=== PATIENT | female | born 1930 | race Two or more races ===

== ENCOUNTER 2020-07-12 20:49 | Inpatient (IN) | payer MEDICARE, OTHER ==
[~2020-07-12] VITALS: Ht 154.9 cm; Wt 44.9 kg
--- NOTE | 2020-07-12 22:21 | NUR ---
PT BIBPA SENT BY DR. NAILS FROM [facility] FOR FLU LIKE SYMPTOMS. PT PLACED ON MONITOR AND PULSE OX. VSS. AWAITING FOR MD TO PALCE ORDERS.
--- NOTE | 2020-07-12 22:40 | NUR ---
VASQUEZID SWABBED, SENT TO LAB.
--- NOTE | 2020-07-12 23:59 | NUR ---
PT REMAINS IN BED, VSS.
--- NOTE | 2020-07-13 00:35 | NUR ---
dr. rodgers speaking to dr. mata regarding plan of care/ results.
--- NOTE | 2020-07-13 00:55 | NUR ---
called [facility]; [phone]. spoke to charmaine, informed nurse pt okay to admit at [facility] facility for covid r/o pt. fax #[phone]
--- NOTE | 2020-07-13 01:17 | NUR ---
verified with SERGEI Estrada she received fax. aware rapid covid test is negative and cxr is consistent with covid. however, SERGEI Estrada states they need a definet covid results. Dr. esperanza kincaid
--- NOTE | 2020-07-13 03:22 | NUR ---
called rn sup for m/s bed
--- NOTE | 2020-07-13 03:36 | NUR ---
LINE ESTABLISHED 20G.
--- NOTE | 2020-07-13 05:36 | NUR ---
CALLED RN SUP, BED WILL BE ASSIGEND AFTER 729.
--- NOTE | 2020-07-13 06:55 | NUR ---
called rn sup, no assigned beds at this time.
[2020-07-13] MEDS ORDERED: ACET-868 PO ×2 (07:37)
[2020-07-13] MEDS ORDERED: RISP0.2515 PO (07:37)
[2020-07-13] MEDS ORDERED: MEGE400O6 PO (07:37)
[2020-07-13] MEDS ORDERED: ZINC50TA65 PO (07:37)
[2020-07-13] MEDS ORDERED: BUSP5TAB3 PO (07:37)
[2020-07-13] MEDS ORDERED: LEVO50TA8 PO (07:37)
[2020-07-13] MEDS ORDERED: DIVA-76 PO (07:37)
[2020-07-13] MEDS ORDERED: CHOL100040 PO (07:37)
[2020-07-13] MEDS ORDERED: ASCO-352 PO (07:37)
[2020-07-13] MEDS ORDERED: AMLO-212 PO (07:37)
--- NOTE | 2020-07-13 08:55 | NUR ---
report given to archana cedeno at [facility] for caridad. pt will go to 113-2.
--- NOTE | 2020-07-13 09:30 | NUR ---
pt transferred top room 113-2
--- NOTE | 2020-07-13 10:18 | NUR ---
ASSEMBLER DRY CELL AND BATTERY RECEIVING NOTES RECEIVED ADMISSION FROM ER. PATIENT IN MEDICALLY STABLE CONDITION, ON ROOM AIR. VS WNL BP: 139/68 HR 82 TEMP 98.9 RESP 20 O2 98% ON ROOM AIR. WILL CONTINUE TO MONITOR PATIENT.
--- NOTE | 2020-07-13 11:20 | NUR ---
ELECTROENCEPHALOGRAPHIC TECHNICIAN NOTES PATIENT REFUSES SKIN ASSESSMENT AT THIS TIME
[2020-07-13] MEDS: ASCORBIC ACID 500 MG TABLET PO SCH (17:38)
[2020-07-13] MEDS: busPIRone 5 MG TABLET PO SCH (17:38)
--- NOTE | 2020-07-13 18:50 | NUR ---
FIELD TECH CLOSING NOTES PATIENT RESTING IN BED, AWAKE, A/O X1, CONFUSED AND FORGETFUL. TRIES TO GET OUT OF BED AT TIMES; BED ALARM ON AT ALL TIMES. PATIENT ON ROOM AIR AT THIS TIME; BREATHING EVEN AND UNLABORED; NO SOB NOTED. PATIENT KEEPS REMOVING TELE BOX AND LEADS; PATIENT DOES NOT WANT TO KEEP IT ON. NO COMPLAINS OF PAIN. L HAND IV ACCESS G # 20 SL. ALL NEEDS ATTENDED. SAFETY PRECAUTIONS IN PLACE; BED IN LOW POSITION AND LOCKED, RAILS UP X2, CALL LIGHT WITHIN REACH. WILL ENDORSE TO VP PRODUCT NURSE.
[2020-07-13 20:00] VITALS: BP 138/76
--- NOTE | 2020-07-13 20:00 | NUR ---
RN NOTES PATIENT AWAKE, A/O X1, AND CONFUSED. BREATHING EVEN AND UNLABORED. NO SOB OR ANY RESPIRATORY DISTRESS. ON ROOM AIR, O2 SAT 95%. TELE MONITOR IN PLACE AT THIS TIME, SR 60'S. DENIES ANY PAIN OR DISCOMFORT. WITH LEFT HAND # 20 SL, PATENT AND INTACT. BED LOCKED AND IN LOWEST POSITION. ALL SAFETY MEASURES IMPLEMENTED. SIDE RAILS UP X2. CALL LIGHT WITHIN REACH. WILL CONTINUE TO MONITOR.
[2020-07-13] MEDS: DIVALPROEX SODIUM 250 MG TABLET.DR PO SCH (20:30)
[2020-07-13] MEDS: risperiDONE 0.25 MG TABLET PO SCH (20:31)
[2020-07-14] VITALS: BP 137/81
[2020-07-14 00:02] LABS: BASOPHILS % (AUTO) 0.2 % (0.0-2.0); EOSINOPHILS % (AUTO) 0.2 % (0.0-6.0); HEMATOCRIT 37 % (33-45); HEMOGLOBIN 12.2 g/dL (11.5-14.8); LYMPHOCYTES # (AUTO) 1.8 /CMM (0.8-4.8); LYMPHOCYTES % (AUTO) 31.1 % (20.0-44.0); MEAN CORPUSCULAR HGB CONC 33 g/dl (31.0-36.0); MEAN CORPUSCULAR VOLUME 88 fL (82-100); MONOCYTES # (AUTO) 0.6 /CMM (0.1-1.30); MONOCYTES % (AUTO) 9.7 % (2.0-12.0); NEUTROPHILS # (AUTO) 3.4 /CMM (1.8-8.9); NEUTROPHILS % (AUTO) 58.8 % (43.0-81.0); PLATELET COUNT (AUTO) 197 /CMM (150-450); RED BLOOD CELL COUNT(AUTO) 4.24 MIL/uL (4.0-5.2); WHITE BLOOD COUNT (AUTO) 5.7 K/uL (4.3-11.0)
[2020-07-14 00:16] LABS: ALANINE AMINOTRANSFERASE 16 U/L (12-78); ALBUMIN 2.9 g/dL (3.4-5.0); ALKALINE PHOSPHATASE 44 U/L (46-116); ASPARTATE AMINOTRANSFERASE 20 U/L (15-37); BILIRUBIN,TOTAL 0.5 mg/dL (0.2-1.0); CALCIUM, SERUM 8.4 mg/dL (8.5-10.1); CARBON DIOXIDE 28 mmol/L (21-32); CHLORIDE 106 mmol/L (98-107); CREATININE 0.6 mg/dL (0.6-1.3); GLUCOSE 87 mg/dL (74-106); POTASSIUM 3.8 mmol/L (3.5-5.1); SODIUM SERUM 141 mmol/L (136-145); TOTAL PROTEIN, SERUM 6.4 g/dL (6.4-8.2); UREA NITROGEN, BLOOD 19 mg/dL (7-18)
[2020-07-14 04:00] VITALS: BP 127/79
[2020-07-14 06:11] LABS: BASOPHILS # (AUTO) 0.1 /CMM (0.0-0.2); BASOPHILS % (AUTO) 1.2 % (0.0-2.0); EOSINOPHILS % (AUTO) 0.1 % (0.0-6.0); HEMATOCRIT 39 % (33-45); HEMOGLOBIN 12.8 g/dL (11.5-14.8); LYMPHOCYTES # (AUTO) 1.5 /CMM (0.8-4.8); MEAN CORPUSCULAR HGB CONC 33 g/dl (31.0-36.0); MEAN CORPUSCULAR VOLUME 89 fL (82-100); MONOCYTES # (AUTO) 0.5 /CMM (0.1-1.30); MONOCYTES % (AUTO) 9.5 % (2.0-12.0); NEUTROPHILS # (AUTO) 3.1 /CMM (1.8-8.9); NEUTROPHILS % (AUTO) 60.2 % (43.0-81.0); PLATELET COUNT (AUTO) 208 /CMM (150-450); RED BLOOD CELL COUNT(AUTO) 4.43 MIL/uL (4.0-5.2); WHITE BLOOD COUNT (AUTO) 5.2 K/uL (4.3-11.0)
[2020-07-14 06:13] LABS: CALCIUM, SERUM 8.8 mg/dL (8.5-10.1); CARBON DIOXIDE 28 mmol/L (21-32); CHLORIDE 107 mmol/L (98-107); CREATININE 0.7 mg/dL (0.6-1.3); GLUCOSE 89 mg/dL (74-106); MAGNESIUM 2.1 mg/dL (1.8-2.4); POTASSIUM 4.8 mmol/L (3.5-5.1); SODIUM SERUM 144 mmol/L (136-145); UREA NITROGEN, BLOOD 17 mg/dL (7-18)
--- NOTE | 2020-07-14 06:24 | NUR ---
OBTAINED NEW ORDERS FROM NOTED AND CARRIED OUT.
[2020-07-14] MEDS ORDERED: CEFTRIAXONE 1 G in IV D5W 50 ML IV SCH (06:30)
[2020-07-14] MEDS ORDERED: ONDANSETRON HCL/PF 4 MG/2 ML VIAL IV PRN (06:30)
[2020-07-14] MEDS ORDERED: IV D5/ 0.9% NACL 1,000 ML IV ONE ×2 (06:30→08:00)
--- NOTE | 2020-07-14 07:08 | NUR ---
RN NOTES PATIENT AWAKE, A/O X1, AND CONFUSED. BREATHING EVEN AND UNLABORED. NO SOB OR ANY RESPIRATORY DISTRESS. ON ROOM AIR, O2 SAT 95%. TELE MONITOR IN PLACE AT THIS TIME, SR 68. DENIES ANY PAIN OR DISCOMFORT. WITH LEFT HAND # 20 SL, PATENT AND INTACT. BED LOCKED AND IN LOWEST POSITION. ALL SAFETY MEASURES IMPLEMENTED. SIDE RAILS UP X2. CALL LIGHT WITHIN REACH. WILL ENDORSE TO ONCOMING SHIFT.
[2020-07-14 08:13] VITALS: BP 144/75
--- NOTE | 2020-07-14 08:30 | NUR ---
POWDER LOADER NOTES RECEIVED PATIENT FOR CONTINUITY OF CARE. WILL CONTINUE TO MONITOR.
[2020-07-14] MEDS: MEGESTROL ACETATE SUSP 400 MG/10 ML UDC PO SCH (09:00)
[2020-07-14] MEDS ORDERED: Medication Not On Formulary EA (Zinc Amino Acid Chelate (Zinc) 50 MG) PO SCH (09:00)
[2020-07-14] MEDS: CHOLECALCIFEROL 1,000 UNIT TABLET (VIT D3) PO SCH (09:30)
[2020-07-14] MEDS: AMLODIPINE BESYLATE 5 MG TABLET PO SCH (09:31)
[2020-07-14] MEDS: ASCORBIC ACID 500 MG TABLET PO SCH ×2 (09:31→17:54)
[2020-07-14] MEDS: risperiDONE 0.25 MG TABLET PO SCH ×2 (09:31→21:11)
[2020-07-14] MEDS: DIVALPROEX SODIUM 250 MG TABLET.DR PO SCH ×2 (09:31→21:11)
[2020-07-14] MEDS: ACETAMINOPHEN 325 MG TABLET PO SCH (09:31)
[2020-07-14] MEDS: busPIRone 5 MG TABLET PO SCH ×2 (09:31→17:53)
[2020-07-14] MEDS: FAMOTIDINE/PF INJ 20 MG/2 ML VIAL IV SCH ×2 (09:32→21:11)
[2020-07-14] MEDS: ENOXAPARIN SODIUM 30 MG/0.3 ML DISP.SYRIN SQ SCH (09:33)
[2020-07-14] MEDS: LEVOTHYROXINE SODIUM 50 MCG TABLET PO SCH (09:34)
--- NOTE | 2020-07-14 10:12 | NUR ---
GLASS TECHNICIAN NOTES PATIENT TRANSFERRED TO SERGEI GRULLON FOR CONTINUITY OF CARE.
[2020-07-14 12:00] VITALS: BP 110/54
[2020-07-14] MEDS: CEFTRIAXONE 1 G in IV D5W 50 ML IV SCH (12:36)
[2020-07-14] MEDS: AZITHROMYCIN 500 MG in IV D5W 250 ML IV SCH (14:28)
[2020-07-14 16:00] VITALS: BP 103/54
--- NOTE | 2020-07-14 19:55 | NUR ---
PT REMAINS AOX1. PATIENT ON RA, O2 SATURATION 96% NO RESPIRATORY DISTRESS OR SOB. PT ON MONITOR SHOWING SINUS RHYTHM/SINUS PEDRITO. PT VOID 2X INCONTINENT ON DIAPER. PT REMAINS REGULAR DIET BUT WITH POOR APPETITE, STATION DETECTIVE FEEDER REPORTS APPROXIMATELY 10% OF ORAL INTAKE FOR FOOD. OFTEN REFUSES WATER AND FOOD, BUT TAKES MEDICATION. PT LEFT FOREARM #20 RUNNING D5NS AT 75 ML/HR, NO SIGNS OF INFECTION OR INFILTRATION. BED IN LOCKED LOWEST POSITION, CALL LIGHT WITHIN REACH, ALL SAFETY MEASURES IN PLACE. REPORT GIVEN TO PATITO FOR GIORGIO
[2020-07-14 20:00] VITALS: BP 127/71
[2020-07-15 04:00] VITALS: BP 166/84
--- NOTE | 2020-07-15 05:42 | NUR ---
ENDING NOTES: PATIENT IS CONFUSED AND NONCOOPERATIVE SCREAMS WHEN REPOSITIONED OR CLEANED OR WHEN HER IV NEEDED TO BE LOOKED AT THE SITE. HER SKIN IS INTACT AND EASY TO TURN AND REPOSITION HER LEGS ARE STIFF WHEN ATTEMPTING TO REPOSITIONS HER CRUSHED HER PO MEDS AND GAVE IT WILL PUDDING AND WAS SUCCESSFUL NO SOB AFEBRILE
[2020-07-15 06:00] LABS: BASOPHILS % (AUTO) 0.2 % (0.0-2.0); EOSINOPHILS % (AUTO) 0.4 % (0.0-6.0); HEMATOCRIT 39 % (33-45); HEMOGLOBIN 12.7 g/dL (11.5-14.8); LYMPHOCYTES # (AUTO) 1.7 /CMM (0.8-4.8); LYMPHOCYTES % (AUTO) 31.6 % (20.0-44.0); MEAN CORPUSCULAR HGB CONC 33 g/dl (31.0-36.0); MEAN CORPUSCULAR VOLUME 88 fL (82-100); MONOCYTES # (AUTO) 0.5 /CMM (0.1-1.30); NEUTROPHILS # (AUTO) 3.3 /CMM (1.8-8.9); NEUTROPHILS % (AUTO) 58.8 % (43.0-81.0); PLATELET COUNT (AUTO) 221 /CMM (150-450); WHITE BLOOD COUNT (AUTO) 5.5 K/uL (4.3-11.0)
[2020-07-15 06:48] LABS: CALCIUM, SERUM 8.5 mg/dL (8.5-10.1); CREATININE 0.7 mg/dL (0.6-1.3); POTASSIUM 4.2 mmol/L (3.5-5.1)
--- NOTE | 2020-07-15 07:30 | NUR ---
RN TELE1 PATIENT IN BED, NO S/S OF DISTRESS, ON ROOM AIR, O2 SAT > 95%, A/O X1, TELE MONTIOR IN PLACE, SINUS RHYTHM, HR 59, SKIN INTACT, REGULAR DIET, POOR APPETITE, IV LEFT FOREARM 20G, INTACT CLEAN FLUSHES WELL, BED IN LOWEST LOCKED POSITION, CALL LIGHT WITHIN REACH, SAFETY MEASURES IN PLACE, WILL CONTINUE TO MONITOR.
[2020-07-15 08:00] VITALS: BP 165/78
[2020-07-15] MEDS: AZITHROMYCIN 500 MG in IV D5W 250 ML IV SCH (09:00)
[2020-07-15] MEDS: ENOXAPARIN SODIUM 30 MG/0.3 ML DISP.SYRIN SQ SCH (10:10)
[2020-07-15] MEDS: ASCORBIC ACID 500 MG TABLET PO SCH ×2 (10:11→18:17)
[2020-07-15] MEDS: risperiDONE 0.25 MG TABLET PO SCH ×2 (10:11→20:40)
[2020-07-15] MEDS: MEGESTROL ACETATE SUSP 400 MG/10 ML UDC PO SCH (10:11)
[2020-07-15] MEDS: LEVOTHYROXINE SODIUM 50 MCG TABLET PO SCH (10:11)
[2020-07-15] MEDS: DIVALPROEX SODIUM 250 MG TABLET.DR PO SCH ×2 (10:11→20:40)
[2020-07-15] MEDS: CHOLECALCIFEROL 1,000 UNIT TABLET (VIT D3) PO SCH (10:11)
[2020-07-15] MEDS: busPIRone 5 MG TABLET PO SCH ×2 (10:12→18:17)
[2020-07-15] MEDS: FAMOTIDINE (20 MG) 20 MG TABLET PO SCH ×2 (10:12→18:17)
[2020-07-15] MEDS: AMLODIPINE BESYLATE 5 MG TABLET PO SCH (10:12)
[2020-07-15] MEDS: ACETAMINOPHEN 325 MG TABLET PO SCH (10:12)
[2020-07-15] MEDS: CEFTRIAXONE 1 G in IV D5W 50 ML IV SCH (10:31)
[2020-07-15 12:00] VITALS: BP 105/66
--- NOTE | 2020-07-15 12:00 | NUR ---
RN TELE1 PATIENT IS SLEEPING IN BED, NO S/S OF DISTRESS, WILL CONTINUE TO MONITOR.
--- NOTE | 2020-07-15 14:00 | NUR ---
RELAYED POSITIVE RESULT PCR TO JAJA MAI FOR GIORGIO.
--- NOTE | 2020-07-15 14:00 | NUR ---
THRASHER FEEDER PATIENT IN BED, CLEANED LINENS, TOLERATED WELL, SKIN INTACT.
--- NOTE | 2020-07-15 14:12 | NUR ---
PATIENT PCR COVID POSITIVE DR. ALLISON NOTIFIED.
[2020-07-15 16:00] VITALS: BP 137/66
[2020-07-15] MEDS ORDERED: FAMOTIDINE (20 MG) 20 MG TABLET PO SCH ×2 (17:00)
--- NOTE | 2020-07-15 19:30 | NUR ---
RN TELE1 PATIENT IN BED, NO S/S OF DISTRESS, ON ROOM AIR, O2 SAT > 95%, A/O X1, TELE MONITOR IN PLACE, SINUS RHYTHM, SKIN INTACT, REGULAR DIET, POOR APPETITE, IV LEFT FOREARM 20G, INTACT CLEAN FLUSHES WELL, DID NOT URINATE DURING THE SHIFT, NOTIFIED THE FLYING SHEAR OPERATOR NURSE TO MONITOR, BED IN LOWEST LOCKED POSITION, CALL LIGHT WITHIN REACH, SAFETY MEASURES IN PLACE, WILL CONTINUE TO MONITOR.
[2020-07-15 20:00] VITALS: BP 116/70
--- NOTE | 2020-07-15 20:00 | NUR ---
RN OPENING NOTES RECEIVED PATIENT IN BED, VERBALLY RESPONSIVE. ALERT ORIENTED X 1. NOT IN ANY ACUTE DISTRESS, DENIES SOB. WITH LFA 20G IV, PATIENT COMPLAINED OF PAIN ON IV SITE, MILD SWELLING NOTED. NO SIGNS OF INFECTION, REMOVED LIVE. INSERTED NEW IV ON RIGHT FOREARM 22G, WITH GOOD RETURN, FLUSHED WITH NS. ALL SAFETY MEASURES IMPLEMENTED. BED LOCKED IN LOWEST POSITION, ALARM ON. CALL LIGHT WITHIN REACH. SIDE RAILS UP.
[2020-07-16 04:00] VITALS: BP 118/73
--- NOTE | 2020-07-16 07:48 | NUR ---
RN NOTES PATIENT REMAINS IN BED. NOT IN ANY ACUTE DISTRESS. DENIES SOB. DENIES ANY PAIN. WITH IV LINE ON RIGHT FA G 22 PATENT AND INTACT, FLUSHED. KEPT CLEAN AND DRY. ATTENDED TO NEEDS. ALL SAFETY MEASURES IMPLEMENTED PER PROTOCOL, BED LOCKED IN LOWEST POSITION. SIDE RAILS UP. CALL LIGHT WITHIN REACH.WILL ENDORSE TO AM SHIFT FOR GIORGIO.
--- NOTE | 2020-07-16 07:50 | NUR ---
RN OPENING NOTE Patient is resting in bed, A/O x1, showing no signs of acute distress or SOB, stable on RA. Patient denies any pain or discomfort at this time. IV line is clean and intact flushing well. Bed is in lowest position, side rails x in upright position, call light is within reach, fall safety and aspiration precautions enforced. Will continue with plan of care.
[2020-07-16 08:00] VITALS: BP 119/55
[2020-07-16] MEDS: FAMOTIDINE (20 MG) 20 MG TABLET PO SCH ×2 (08:24→16:34)
[2020-07-16] MEDS: CHOLECALCIFEROL 1,000 UNIT TABLET (VIT D3) PO SCH (08:24)
[2020-07-16] MEDS: busPIRone 5 MG TABLET PO SCH ×2 (08:24→16:34)
[2020-07-16] MEDS: MEGESTROL ACETATE SUSP 400 MG/10 ML UDC PO SCH (08:24)
[2020-07-16] MEDS: risperiDONE 0.25 MG TABLET PO SCH ×2 (08:25→20:45)
[2020-07-16] MEDS: LEVOTHYROXINE SODIUM 50 MCG TABLET PO SCH (08:25)
[2020-07-16] MEDS: DIVALPROEX SODIUM 250 MG TABLET.DR PO SCH ×2 (08:25→20:45)
[2020-07-16] MEDS: ASCORBIC ACID 500 MG TABLET PO SCH ×2 (08:25→16:34)
[2020-07-16] MEDS: CEFTRIAXONE 1 G in IV D5W 50 ML IV SCH (08:26)
[2020-07-16] MEDS: ENOXAPARIN SODIUM 30 MG/0.3 ML DISP.SYRIN SQ SCH (08:27)
[2020-07-16] MEDS: ACETAMINOPHEN 325 MG TABLET PO SCH (08:27)
[2020-07-16] MEDS: AMLODIPINE BESYLATE 5 MG TABLET PO SCH (08:28)
[2020-07-16] MEDS: AZITHROMYCIN 500 MG in IV D5W 250 ML IV SCH (09:56)
[2020-07-16 12:00] VITALS: BP 82/40
--- NOTE | 2020-07-16 12:20 | NUR ---
RN NOTE Manual BP is 80s/40s HR 140. Notified Dr. Crowley and received telephone order for 1 LITER D5 1/2NS @100MLS/HR. Orders repeated back and will carry out. Addendum: 07/16/20 at 1228 by ELE MCNAIR RN RN NOTE Patient is able to respond to name and touch. Will continue to monitor closely.
[2020-07-16] MEDS: IV D5/0.45 NACL 1,000 ML IV PRN (12:30)
[2020-07-16 13:00] VITALS: BP 99/64
[2020-07-16 16:00] VITALS: BP 107/74
--- NOTE | 2020-07-16 18:53 | NUR ---
RN CLOSING NOTE Patient is resting in bed, A/O x1, showing no signs of acute distress or SOB, stable on RA. IV line is clean and intact flushing well. All patient needs met, all due medications given, patient kept clean and dry throughout shift. Bed is in lowest position, side rails x in upright position, call light is within reach, fall safety and aspiration precautions enforced. Will endorse to shift manager for GIORGIO.
[2020-07-16 20:00] VITALS: BP 126/75
--- NOTE | 2020-07-16 20:00 | NUR ---
RN OPENING NOTE: Patient in bed sleeping comfortably. Patient breathing even and unlabored on room air. No acute respiratory distress or SOB noted. Noted IV access on right forearm, 22 gauge, patent, no redness, or infiltration. Safety measure in place, bed is in the lowest level, bed is locked, alarm is on, side rails x2 are up, and call light is within reach. Will continue to monitor.
[2020-07-17] MEDS: IV D5/0.45 NACL 1,000 ML IV PRN (05:34)
--- NOTE | 2020-07-17 07:00 | NUR ---
RN OPENING NOTES RECEIVED PT IN BED. A/O X 1. ON ROOM AIR SATURATING @98%. NO SOB OR ANY ACUTE DISTRESS. WITH RFA #22 INTACT AND PATENT. D5 1/2 NS RUNNING @100ML/HR. NO PAIN REPORTED AT THIS TIME. SAFETY MEASURES IMPLEMENTED. CALL LIGHT WITHIN REACH. BED LOCKED AND IN LOWEST POSITION WITH SIDE RAILS UP. BED ALARM ON. WILL CONTINUE TO MONITOR
--- NOTE | 2020-07-17 07:54 | NUR ---
RN CLOSING NOTE: Patient in bed resting comfortably. Patient breathing even and unlabored with no SOB or acute respiratory distress. All needs were met. Safety measures maintained. Bed is in the lowest level, bed is locked, alarm is on, side rails x2 are up, and call light is within reach. Endorsed to morning nurse.
[2020-07-17 08:00] VITALS: BP 103/72
[2020-07-17] MEDS: CEFTRIAXONE 1 G in IV D5W 50 ML IV SCH (08:00)
[2020-07-17] MEDS: LEVOTHYROXINE SODIUM 50 MCG TABLET PO SCH (08:50)
[2020-07-17] MEDS: ACETAMINOPHEN 325 MG TABLET PO SCH (08:51)
[2020-07-17] MEDS: FAMOTIDINE (20 MG) 20 MG TABLET PO SCH (08:51)
[2020-07-17] MEDS: CHOLECALCIFEROL 1,000 UNIT TABLET (VIT D3) PO SCH (08:51)
[2020-07-17] MEDS: risperiDONE 0.25 MG TABLET PO SCH (08:51)
[2020-07-17] MEDS: ASCORBIC ACID 500 MG TABLET PO SCH (08:52)
[2020-07-17] MEDS: MEGESTROL ACETATE SUSP 400 MG/10 ML UDC PO SCH (08:52)
[2020-07-17] MEDS: DIVALPROEX SODIUM 250 MG TABLET.DR PO SCH (08:52)
[2020-07-17] MEDS: busPIRone 5 MG TABLET PO SCH (08:52)
[2020-07-17] MEDS: ENOXAPARIN SODIUM 30 MG/0.3 ML DISP.SYRIN SQ SCH (08:53)
[2020-07-17] MEDS ORDERED: DEXA6TAB6 PO (10:42)
--- NOTE | 2020-07-17 12:00 | NUR ---
RN NOTES REPORT GIVEN TO CHERELLE MAI. ESTIMATED TIME OF COMMUNICATIONS PROFESSOR 1300
--- NOTE | 2020-07-17 13:40 | NUR ---
RN CLOSING NOTES DISCHARGED PT TO [facility]. VS WNL. PT STABLE CONDITION. DISCHARGE INSTRUCTIONS PROVIDED. REFUSES VACCINES. EDUCATION X3 PROVIDED, STILL REFUSED. SKIN IS INTACT. ACCOMPANIED BY AMBULANCE CREW.
== END 2020-07-17 13:29 | DRG 177 ==
LOC: ER 20:50 → TELE1 07-13 08:49 → MEDSG1 07-15 14:56
PROVIDERS: ADMIT Legal Medicine; ATTEND Legal Medicine
DX: U07.1 COVID-19 (principal); G93.41 Metabolic encephalopathy; J12.89 Other viral pneumonia; N17.9 Acute kidney failure, unspecified; F03.90 Unspecified dementia, unspecified severity, without behavioral disturbance, psychotic disturbance, mood disturbance, and anxiety; I10 Essential (primary) hypertension; M19.90 Unspecified osteoarthritis, unspecified site; Z20.828 Contact with and (suspected) exposure to other viral communicable diseases
CPT/HCPCS: 36415; 71045-TC; 80048-TC; 80053-TC; 83615-TC; 83735-TC; 85025-TC; 85378-TC; 86140-TC; 87081-TC; 92526; 92611-TC; 97110-TC; 97112-TC; 97530-TC; C9803; G0378; J0456; J0696; J1650; J3490; J7042; J7060; U0003

== ENCOUNTER 2021-01-12 14:50 | Inpatient (IN) | payer MEDICARE, OTHER ==
[~2021-01-12] VITALS: Ht 154.9 cm; Wt 43.5 kg
[~2021-01-12 14:50] MED LIST: ACET-868 PO; AMLO-212 PO; ASCO-352 PO; BUSP5TAB3 PO; CHOL100040 PO; DEXA6TAB6 PO; DIVA-76 PO; LEVO50TA8 PO; RISP0.2515 PO; ZINC50TA65 PO
--- NOTE | 2021-01-12 15:00 | NUR ---
The patient is bibayden, from [place] [facility], sent by PMD due to generalized weakness and poor oral intake, r/o UTI. The patient alert and oriented x1. In room air and denies SOB. Respiration regular and unlabored. Attached to the monitor. Warm blanket provided for comfort. Will continue to monitor the patient.
[2021-01-12 15:38] LABS: BILIRUBIN,URINE NEGATIVE (NEGATIVE); COLOR,URINE DARK YELLOW (YELLOW); LEUKOCYTE ESTERASE ,URINE NEGATIVE (NEGATIVE); NITRITE, URINE NEGATIVE (NEGATIVE); PROTEIN,URINE TRACE mg/dl (NEGATIVE); UGLUCOSE NEGATIVE (NEGATIVE); UROBILINOGEN,URINE 0.2 EU/dL (0.2)
[2021-01-12 15:54] LABS: ALBUMIN 2.6 g/dL (3.4-5.0); BILIRUBIN,DIRECT 0.1 mg/dL (0.0-0.2); BILIRUBIN,TOTAL 0.5 mg/dL (0.2-1.0); CALCIUM, SERUM 8.7 mg/dL (8.5-10.1); CREATININE 0.7 mg/dL (0.6-1.3); POTASSIUM 4.1 mmol/L (3.5-5.1); TOTAL PROTEIN, SERUM 6.4 g/dL (6.4-8.2)
[2021-01-12 16:02] LABS: BASOPHILS % (AUTO) 0.3 % (0.0-2.0); EOSINOPHILS % (AUTO) 0.1 % (0.0-6.0); HEMATOCRIT 37 % (33-45); HEMOGLOBIN 12.2 g/dL (11.5-14.8); LYMPHOCYTES # (AUTO) 1.7 /CMM (0.8-4.8); LYMPHOCYTES % (AUTO) 22.3 % (20.0-44.0); MEAN CORPUSCULAR HGB CONC 33 g/dl (31.0-36.0); MEAN CORPUSCULAR VOLUME 89 fL (82-100); MONOCYTES # (AUTO) 0.8 /CMM (0.1-1.30); MONOCYTES % (AUTO) 10.3 % (2.0-12.0); NEUTROPHILS # (AUTO) 5.1 /CMM (1.8-8.9); PLATELET COUNT (AUTO) 281 /CMM (150-450); RED BLOOD CELL COUNT(AUTO) 4.14 MIL/uL (4.0-5.2); WHITE BLOOD COUNT (AUTO) 7.7 K/uL (4.3-11.0)
[2021-01-12 16:22] LABS: BACTERIA,URINE None seen /HPF (None Seen); MUCUS,URINE Few /LPF (None Seen); RBC,URINE 0-2 /HPF (0-2); SQUAMOUS EPITHELIAL CELL,UR M /HPF (None Seen); WBC,URINE 0-2 /HPF (0-3)
[2021-01-12] MEDS ORDERED: IV NS 0.9% 1,000 ML IV ONE (16:30)
--- NOTE | 2021-01-12 16:32 | NUR ---
PAGED DR. ALLISON.
--- NOTE | 2021-01-12 16:45 | NUR ---
ORDERS RECEIVED FROM DR. ALLISON VIA SECURE TEL., READ BACK. PRIMARY RN MADE AWARE.
--- NOTE | 2021-01-12 16:50 | NUR ---
room 109
--- NOTE | 2021-01-12 16:52 | NUR ---
REPORT GIVEN TO NURSE SALVADOR
[2021-01-12] MEDS ORDERED: ASPIRIN 81 MG TAB.CHEW ONE (16:54)
--- NOTE | 2021-01-12 16:55 | NUR ---
covid swab done and sent to the lab
[2021-01-12] MEDS ORDERED: ASPIRIN 81 MG TAB.CHEW PO ONE (17:00)
[2021-01-12] MEDS ORDERED: ACETAMINOPHEN 325 MG TABLET PO PRN (17:00)
[2021-01-12] MEDS ORDERED: ONDANSETRON HCL/PF 4 MG/2 ML VIAL IVP PRN (17:00)
--- NOTE | 2021-01-12 17:55 | NUR ---
The patient is transered to 109 in stable condition and per policy.
--- NOTE | 2021-01-12 18:15 | NUR ---
ms rn note received patient from er with dx dehydration ,general weakness under care dr rodgers, on ra, no sob noted at this time, alert ,oriented x1 , with confusion , rt ac hl intact and flushed well ,vs taken belonging checked by glass technologist , plan of care discussed with patient, bed in lowest and locked position, call light within reach, safety measure provided, all needs attended, admitting orders placed by dr rodgers will endorse to next shift ongoing care
[2021-01-12 18:16] VITALS: BP 149/59
[2021-01-12] MEDS: busPIRone 5 MG TABLET PO SCH (18:49)
[2021-01-12] MEDS: IV D5/ 0.9% NACL 1,000 ML IV PRN (19:50)
[2021-01-12 20:00] VITALS: BP 139/78
--- NOTE | 2021-01-12 20:33 | NUR ---
MS RN NOTES PATIENT IN BED WITH EYES CLOSED, EASY TO AROUSE. NO S/S OF DISTRESS. NO C/O PAIN RO. STARTED IV D5NS @85ML/HR. SAFETY IN PLACE: BED IN LOWEST LOCKED POSITION; CALL LIGHT WITHIN IN REACH. WILL CONTINUE TO MONITOR.
[2021-01-12] MEDS: DIVALPROEX SODIUM 250 MG TABLET.DR PO SCH (21:41)
[2021-01-12] MEDS: risperiDONE 1 MG TABLET PO SCH (21:41)
[2021-01-13 05:15] VITALS: BP 119/62
[2021-01-13 06:10] LABS: BASOPHILS % (AUTO) 0.2 % (0.0-2.0); EOSINOPHILS % (AUTO) 0.2 % (0.0-6.0); HEMATOCRIT 35 % (33-45); HEMOGLOBIN 11.9 g/dL (11.5-14.8); LYMPHOCYTES # (AUTO) 1.5 /CMM (0.8-4.8); MEAN CORPUSCULAR HGB CONC 34 g/dl (31.0-36.0); MEAN CORPUSCULAR VOLUME 89 fL (82-100); MONOCYTES # (AUTO) 0.7 /CMM (0.1-1.30); MONOCYTES % (AUTO) 10.4 % (2.0-12.0); NEUTROPHILS # (AUTO) 4.9 /CMM (1.8-8.9); NEUTROPHILS % (AUTO) 68.2 % (43.0-81.0); PLATELET COUNT (AUTO) 261 /CMM (150-450); RED BLOOD CELL COUNT(AUTO) 3.95 MIL/uL (4.0-5.2); WHITE BLOOD COUNT (AUTO) 7.1 K/uL (4.3-11.0)
--- NOTE | 2021-01-13 06:43 | NUR ---
MS RN CLOSING PATIENT IN BED WITH EYES CLOSED, EASY TO AROUSE. ALERT AND ORIENTED TO NAME ONLY. IV NS RUNNING 85 ML/HR. NO S/S OF DISTRESS. NO C/O PAIN. ALL NEEDS ATTENDED. NO SIGNIFICANT CHANGE SINCE LAST SHIFT. SAFETY KEPT IN PLACE THE WHOLE SHIFT. WILL ENDORSE CARE TO MORNING SHIFT NURSE. Addendum: 01/13/21 at 0647 by JUDITH FRANCIS RN MS RN CLOSING PATIENT IN BED WITH EYES CLOSED, EASY TO AROUSE. ALERT AND ORIENTED TO NAME ONLY. IV NS RUNNING 85 ML/HR. NO S/S OF DISTRESS. NO C/O PAIN. ALL NEEDS ATTENDED. SAFETY KEPT IN PLACE THE WHOLE SHIFT. WILL ENDORSE CARE TO MORNING SHIFT NURSE.
[2021-01-13 06:45] LABS: CALCIUM, SERUM 8.1 mg/dL (8.5-10.1); CARBON DIOXIDE 27 mmol/L (21-32); CHLORIDE 106 mmol/L (98-107); CREATININE 0.5 mg/dL (0.6-1.3); GLUCOSE 123 mg/dL (74-106); MAGNESIUM 1.9 mg/dL (1.8-2.4); POTASSIUM 3.4 mmol/L (3.5-5.1); SODIUM SERUM 142 mmol/L (136-145); UREA NITROGEN, BLOOD 20 mg/dL (7-18)
[2021-01-13] MEDS ORDERED: LEVOTHYROXINE SODIUM 50 MCG TABLET PO SCH (07:30)
[2021-01-13] MEDS: LEVOTHYROXINE SODIUM 50 MCG TABLET PO SCH (08:58)
[2021-01-13] MEDS: risperiDONE 1 MG TABLET PO SCH ×2 (08:58→21:06)
[2021-01-13] MEDS: PANTOPRAZOLE 40 MG VIAL IV SCH (08:58)
[2021-01-13] MEDS: busPIRone 5 MG TABLET PO SCH ×2 (08:58→17:02)
[2021-01-13] MEDS: ENOXAPARIN SODIUM 40 MG/0.4 ML DISP.SYRIN SQ SCH (08:59)
[2021-01-13] MEDS: DIVALPROEX SODIUM 250 MG TABLET.DR PO SCH ×2 (08:59→21:06)
[2021-01-13] MEDS: AMLODIPINE BESYLATE 5 MG TABLET PO SCH (08:59)
[2021-01-13] MEDS: IV D5/ 0.9% NACL 1,000 ML IV PRN (09:14)
[2021-01-13] MEDS ORDERED: POTASSIUM CHLORIDE 20 MEQ TAB.PRT.SR PO SCH (12:30)
[2021-01-13] MEDS: ENSURE ENLIVE 237 ML LIQUID (VANILLA) PO SCH (17:02)
--- NOTE | 2021-01-13 18:33 | NUR ---
MS RN CLOSING NOTE: PATIENT CURRENTLY IN BED, RESTING. AROUSES TO TOUCH AND NAME. A/O X1. WITH ON ROOM AIR - TOLERATING WELL. NO SOB NOTED, NO SIGNS OR SYMPTOMS OF DISTRESS NOTED. IV ACCESS TO RIGHT AC - INTACT AND PATENT - RUNNING D5NS @ 85 ML/HR. PATIENT IS VERY PICKY WITH MEALS AND MEDICATION - REFUSES ALOT BUT WILL TAKE MINIMAL AMOUNTS WITH INSIST. SAFETY MEASURES IN PLACE, CALL LIGHT WITHIN REACH. WILL ENDORSE TO SILVER SOLUTION MIXER FOR GIORGIO.
--- NOTE | 2021-01-13 19:45 | NUR ---
RN NOTE RECEIVED PT IN BED, SLEEPING, AROUSES EASILY. NO SIGNS OF DISTRESS NOTED. PT DENIES ANY PAIN. IV ON RAC PATENT AND INTACT, D5NS RUNNING AT 85ML/HR. ALL SAFETY MEASURES IMPLEMENTED PER PROTOCOL. CALL LIGHT WITHIN REACH, BED LOCKED IN LOWEST POSITION. SIDE RAILS UP.
[2021-01-13 20:00] VITALS: BP 129/62
[2021-01-14 04:00] VITALS: BP 140/46
[2021-01-14 05:57] LABS: BASOPHILS % (AUTO) 0.2 % (0.0-2.0); EOSINOPHILS % (AUTO) 0.3 % (0.0-6.0); HEMATOCRIT 33 % (33-45); HEMOGLOBIN 10.8 g/dL (11.5-14.8); LYMPHOCYTES # (AUTO) 1.5 /CMM (0.8-4.8); MEAN CORPUSCULAR HGB CONC 33 g/dl (31.0-36.0); MEAN CORPUSCULAR VOLUME 89 fL (82-100); MONOCYTES # (AUTO) 0.7 /CMM (0.1-1.30); MONOCYTES % (AUTO) 9.6 % (2.0-12.0); NEUTROPHILS # (AUTO) 5.1 /CMM (1.8-8.9); NEUTROPHILS % (AUTO) 68.9 % (43.0-81.0); PLATELET COUNT (AUTO) 257 /CMM (150-450); RED BLOOD CELL COUNT(AUTO) 3.65 MIL/uL (4.0-5.2); WHITE BLOOD COUNT (AUTO) 7.4 K/uL (4.3-11.0)
[2021-01-14] MEDS: IV D5/ 0.9% NACL 1,000 ML IV PRN (06:00)
--- NOTE | 2021-01-14 06:34 | NUR ---
RN NOTE PT REMAINS IN BED, CONTINUE ON IVFLUIDS OF D5NS AT 85ML/HR, IV REMAIN PATENT AND INTACT, NO SIGNS OF INFILTRATION NOTED. SKIN INTACT. INCONTINENCE CARE RENDERED. NEEDS ATTENDED. ALL SAFETY MEASURES MAINTAINED. WILL ENDORSE TO NEXT SHIFT NURSE FOR GIORGIO.
[2021-01-14 07:07] LABS: CREATININE 0.6 mg/dL (0.6-1.3); MAGNESIUM 1.7 mg/dL (1.8-2.4); POTASSIUM 3.4 mmol/L (3.5-5.1)
[2021-01-14] MEDS: ENSURE ENLIVE 237 ML LIQUID (VANILLA) PO SCH ×3 (09:00→16:17)
[2021-01-14] MEDS: PANTOPRAZOLE 40 MG VIAL IV SCH (10:28)
[2021-01-14] MEDS: risperiDONE 1 MG TABLET PO SCH (10:29)
[2021-01-14] MEDS: AMLODIPINE BESYLATE 5 MG TABLET PO SCH (10:29)
[2021-01-14] MEDS: DIVALPROEX SODIUM 250 MG TABLET.DR PO SCH (10:29)
[2021-01-14] MEDS: LEVOTHYROXINE SODIUM 50 MCG TABLET PO SCH (10:30)
[2021-01-14] MEDS: busPIRone 5 MG TABLET PO SCH ×2 (10:30→16:04)
[2021-01-14] MEDS: ENOXAPARIN SODIUM 40 MG/0.4 ML DISP.SYRIN SQ SCH (10:32)
[2021-01-14] MEDS ORDERED: POTASSIUM CHLORIDE 20 MEQ POWDER PACKET PO SCH (11:00)
[2021-01-14] MEDS: Magnesium 1GM/D5W 100ML PREMIX 100 ML IV SCH ×4 (14:30→16:03)
[2021-01-14 15:29] VITALS: BP 120/82
--- NOTE | 2021-01-14 19:25 | NUR ---
RN NOTES PT TRANSFERRED BY [facility] TO [facility] SHE IS CURRENTLY A PATIENT IN AND LABS IMPROVED MD AUTHORIZED TRANSFER BACK TO SNF TODAY, PT DID NOT EAT BREAKFAST, LUNCH OR DINNER , OFFERED SEVERAL BITES OF EACH MEAL, DRANK SOME ENSURE FOR LUNCH AND FOR DINNER, ALL MD ORDERS CARRIED OUT , CALL LIGHT IN REACH, PT UNABLE TO MAKE NEEDS KNOWN AND VERY CONFUSED, MADE COMFORTABLE AND PROVIDED REASSURANCE , [address] TRANSFER OUT OF [facility] TO [facility] WITH TWO TRIPE COOKER, NO C/O PAIN NO SOB, AND NO DISTRESS NOTED, ATTITUDE HAD IMPROVED AND OVER ALL APPEARED MORE ALERT .
[2021-01-15] MEDS ORDERED: PANTOPRAZOLE 40 MG TABLET.DR PO SCH (07:30)
== END 2021-01-14 18:34 | DRG 641 ==
LOC: ER 14:54 → TELE1 17:10 → MEDSG1 01-13 19:58
PROVIDERS: ADMIT Legal Medicine; ATTEND Legal Medicine
DX: E86.0 Dehydration (principal); Z68.1 Body mass index [BMI] 19.9 or less, adult; J98.11 Atelectasis; E03.9 Hypothyroidism, unspecified; I10 Essential (primary) hypertension; Z86.73 Personal history of transient ischemic attack (TIA), and cerebral infarction without residual deficits; F03.90 Unspecified dementia, unspecified severity, without behavioral disturbance, psychotic disturbance, mood disturbance, and anxiety; Z79.899 Other long term (current) drug therapy; R63.0 Anorexia; I67.2 Cerebral atherosclerosis
CPT/HCPCS: 36415; 70450-TC; 71045-TC; 80048-TC; 80076-TC; 80164-TC; 81001; 82962-TC; 83605-TC; 83735-TC; 84484-TC; 85025-TC; 85730-TC; 87040-TC; 87081-TC; 87086-TC; C9113; G0378; J1650; J3475; J7042; U0003